=== PATIENT | female | born 1935 | race Caucasian/White ===

== ENCOUNTER → 2021-01-06 | Emergency (ER) | payer OTHER ==
[~2021-01-06] VITALS: Ht 170.2 cm; Wt 64.4 kg
--- NOTE | ~2021-01-06 | EMS ---
[address] [address] EMS Patient Care Report Name: CATA TEMPLETON Room #: REG GLORIA Ernandez#: [id number] Admission: 01/06/21 Attend Phys: Discharge: Date of : 35 Report #: [id number] THIS REPORT FOR: //name// Report Transmitted: 01/06/2021 15:21 EMS Care Summary [facility] MED-ACT Incident [id number] @ 01/06/2021 11:26 Incident Location [address] [place] [address] Patient CATA TEMPLETON Female, 85 Years 1935 Patient Address [address] [place] [address] Patient History Congestive Heart Failure (CHF), Chief Complaint Unconscious Disposition Transported No Lights/[place] Dispatch Reason Unconscious/Fainting Transported To [facility] Narrative EMS arrives to find pt on floor with [employer] preparing pt to be rolled onto the tarp, pt responsive only to painful stimuli with deep and rapid respirations. Pt family states she was last seen normal the previous afternoon around 1630, pts family went in to check on the pt after not seeing her all day and found her lying facedown on the ground. Pts family states she us normally alert and oriented and able to take care of herself. Family states pt has no history of stroke and her only cardiac history was CHF, pts family gave pts bag of medications to EMS for the hospital to see, EMS unable to document each [address] [address] EMS Patient Care Report Name: CATA TEMPLETON Room #: REG [facility]#: [id number] Admission: 01/06/21 Attend Phys: Discharge: Date of : 35 Report #: [id number] medication due to pt condition. IV initiated enroute to [facility], 12 lead unremarkable. Positive [place], LVO 9. No change in pt condition during transport. Pt moved to ED bed via tarp. Pt care transferred to ED nursing staff Initial Vitals @PTAP: 98,BP: 157/90,Glucose: 176,SpO2: 93, @11:50P: 115,R: 18,BP: 166/106,GCS: 6,Revised Trauma: 10, @11:46P: 127,R: 18,BP: 138/65,Pain: 0/10,GCS: 6,Temp: 96.3F,Revised Trauma: 10, Assessments @11:40MENTAL:Unresponsive,SKIN:No Abnormalities,HEENT:Eyes: Left: Non-Reactive,Head/Face: Other,Eyes: Right: Dilated,Eyes: Left: Other,Eyes: Right: Other,Eyes: Right: Non-Reactive,Neck/Airway: No Abnormalities,LUNG SOUNDS:General: No Abnormalities,Left Upper: No Abnormalities,Right Upper: No Abnormalities,Left Lower: No Abnormalities,Right Lower: No Abnormalities,ABDOMEN:General: No Abnormalities,Left Upper: No Abnormalities,Right Upper: No Abnormalities,Left Lower: No Abnormalities,Right Lower: No Abnormalities,PELVIS//GI:Incontinence,EXTREMITIES:Right Arm: Other,Capillary Refill: Right Upper: < 2 Sec,Left Arm: No Abnormalities,Left Leg: No Abnormalities,Right Leg: No Abnormalities,PULSE:Radial: 2+ Normal,NEURO:Facial Droop, Impression Stroke Procedures @11:5012-Lead ECGResponse: UnchangedSucceeded@11:45Saline Lock 10cc (20 ga) Site: Forearm-RightResponse: UnchangedSucceeded@11:46Stroke AlertResponse: Unchanged Timeline SENIOR BOOKKEEPER,BP: 157/90 M,PULSE: 98,RR: R,SPO2: 93 Ox,ETCO2: ,B,PAIN: ,GCS: , 11:25,Call Received 11:25,Psap Call 11:26,Dispatched 11:26,En Route 11:35,On Scene 11:37,At Patient 11:45,Depart Scene 11:45,Saline Lock 10cc 20 ga Site: Forearm-Right,Response: UnchangedSucceeded, 11:46,Stroke Alert,Response: Unchanged 11:46,BP: 138/65 M,PULSE: 127,RR: 18 R,SPO2: Ox,ETCO2: ,BG: ,PAIN: 0,GCS: 6, 11:50,BP: 166/106 M,PULSE: 115,RR: 18 R,SPO2: Ox,ETCO2: ,BG: ,PAIN: ,GCS: 6, 11:50,12-Lead ECG,Response: UnchangedSucceeded, 11:51,At Destination [facility] [address] [place] [address] EMS Patient Care Report Name: YOKASTACATA Room #: REG GLORIA Ernandez#: [id number] Admission: 01/06/21 Attend Phys: Discharge: Date of : 35 Report #: [id number] 12:23,Call Closed Disclaimer v1.1 Copyright 2020 [employer] This EMS Care Summary contains data elements from the applicable legal record (which may be displayed differently). It is designed to provide pertinent information for the following purposes: continuity of care, clinical quality, and state data reporting. The complete legal record is available to ED staff and administrators of the receiving hospital in [employer]'s Patient Tracker. All data is provided "as is."
[2021-01-06 12:15] LABS: ABSOLUTE NEUTROPHILS 11.4 thou/uL (1.4-8.2); BASOPHILS 0.2 % (0.0-2.0); HEMATOCRIT 37.5 % (37.0-47.0); HEMOGLOBIN 12.6 gm/dL (12.0-15.0); MCH 31.1 pg (26.0-34.0); MCHC 33.7 g/dL (28.0-37.0); MCV 92.4 fL (80.0-100.0); MONOCYTES 7.3 % (1.0-8.0); PLATELET COUNT 283 thou/uL (150-400); POLYS 84.5 % (36.0-66.0); RBC 4.06 mil/uL (4.20-5.00); RDW 14.1 % (10.5-14.5); WBC 13.5 thou/uL (4.0-11.0)
[2021-01-06 12:19] LABS: CALCIUM 9.2 mg/dL (8.5-10.1); CREATININE 1.2 mg/dL (0.6-1.0); POTASSIUM 3.6 mmol/L (3.5-5.1)
[2021-01-06 12:29] LABS: APTT 34.5 Seconds (24.5-32.8); PROTIME 21.3 Seconds (9.3-11.4)
[2021-01-06 12:30] LABS: ALBUMIN 4.7 g/dL (3.4-5.0); DIGOXIN 0.5 ng/mL (0.9-2.0); DIRECT BILIRUBIN 0.3 mg/dL (<0.1-0.2); TOTAL BILIRUBIN 1.1 mg/dL (0.2-1.0); TROPONIN-I 0.57 ng/mL (<0.06)
[2021-01-06 13:33] LABS: BE(vivo) -4.3 mmol/L (-2 to +3); HCO3 18.9 mmol/L (22.0-26.0); PCO2 29.4 mmHg (35.0-45.0); PO2 121.5 mmHg (80.0-100.0); pH 7.426 (7.360-7.450); sO2 98.5 % (92.0-98.0)
[2021-01-06 13:52] VITALS: BP 149/81
--- NOTE | 2021-01-07 07:38 | EKG ---
[address] [place] [address] ELECTROCARDIOGRAM REPORT Name: CATA TEMPLETON [id number] Admission: 01/06/21 Attend Phys: Discharge: Date of : 35 Report #: [id number] [facility] ED Test Date: 2021-01-06 Test Time: 12:57:56 Pat Name: CATA TEMPLETON Department: Room: Gender: F [employer] Teacher: DAVID RIVERA : 1935 Requested By: Brandon Mcgee Order Number: [id number] MD: Jarrell Obando Measurements Intervals [place] Rate: 100 P: [place]: QRS: 72 QRSD: 103 T: 250 QT: 374 QTc: 483 Interpretive Statements Atrial fibrillation Multiple ventricular premature complexes LVH with secondary repolarization abnormality No previous ECG available for comparison Electronically Signed On 01-07-2021 7:38:57 [employer] DELIVERY AIDE by Jarrell Obando [email or web address] <ELECTRONICALLY SIGNED> By: Jarrell Obando MD, [facility] 01/07/21 [id number] [id number] Jarrell Obando MD, FACC /EPI
== END ==
LOC: ER 11:55
PROVIDERS: Emergency Medicine
DX: S06.5X0A Traumatic subdural hemorrhage without loss of consciousness, initial encounter (principal); R41.82 Altered mental status, unspecified; I21.4 Non-ST elevation (NSTEMI) myocardial infarction; T68.XXXA Hypothermia, initial encounter; Z88.0 Allergy status to penicillin; Z88.2 Allergy status to sulfonamides; X58.XXXA Exposure to other specified factors, initial encounter; Y93.89 Activity, other specified; Y92.89 Other specified places as the place of occurrence of the external cause; Y99.8 Other external cause status